=== PATIENT | female | born 1985 | race Asian ===

== ENCOUNTER 2022-10-28 13:34 | Emergency (ER) | payer OTHER ==
[2022-10-28 13:53] VITALS: BP 131/82; PULSE 72; RESP 18; TEMP 98.8; BMI 21.7
[2022-10-28 15:33] LABS: HEMOGLOBIN 13.2 G/dL (10.7-15.3); MCH 29.9 pg (25.7-33.7); MCHC 32.1 g/dl (32.0-36.0); MEAN CELL VOLUME 93.2 fl (80-96); MEAN PLT VOLUME 8.3 fl (7.5-11.1); PLATELET COUNT 216.5 10^3/uL (134-434); RDW 14.9 % (11.6-15.6); WHITE BLOOD COUNT 8.4 10^3/uL (4.0-10.8)
[2022-10-28 15:34] LABS: INR 0.95 (0.83-1.09); PROTHROMBIN TIME (PATIENT) 10.9 SEC (9.7-13.0)
[2022-10-28 15:37] LABS: ACTIVATED PTT 31.8 SECONDS (25.2-36.5)
[2022-10-28 15:39] LABS: ALBUMIN 4.5 g/dl (3.4-5.0); BILIRUBIN,TOTAL 1.2 mg/dl (0.2-1); CALCIUM 9.6 mg/dl (8.5-10); CREATININE 0.8 mg/dl (0.55-1.3); POTASSIUM 3.8 mmol/L (3.5-5.1); TOT PROT 7.7 g/dl (6.4-8.2)
[2022-10-28 15:44] LABS: PLATELET ESTIMATE ADEQUATE
[2022-10-30 14:08] LABS: E.chaff HME IgG Negative (Neg:<1:64)
== END 2022-10-28 16:20 | disposition home or self-care (01) ==
LOC: FER 13:34
DX: R22.32 Localized swelling, mass and lump, left upper limb (principal); S50.12XA Contusion of left forearm, initial encounter; X58.XXXA Exposure to other specified factors, initial encounter; Y93.16 Activity, rowing, canoeing, kayaking, rafting and tubing
CPT/HCPCS: 36415; 71046-TC-FY; 73030-TC-LT-FY; 80053; 85027; 85610; 85730; 86618; 86666; 93971; 99285-25